=== PATIENT | male | born 1985 | race African-American/Black ===

== ENCOUNTER 2018-04-10 10:51 | Emergency (ER) | payer OTHER ==
[~2018-04-10] VITALS: Ht 188 cm; Wt 84.0 kg
[2018-04-10 10:55] VITALS: BP 113/70
== END 2018-04-10 12:33 | disposition home or self-care (01) ==
LOC: ER 10:51
DX: S62.396A Other fracture of fifth metacarpal bone, right hand, initial encounter for closed fracture (principal); Z98.890 Other specified postprocedural states; Z87.828 Personal history of other (healed) physical injury and trauma; W22.01XA Walked into wall, initial encounter; Y93.89 Activity, other specified; Y92.018 Other place in single-family (private) house as the place of occurrence of the external cause
CPT/HCPCS: 29125; 73130; 99284